=== PATIENT | female | born 1970 | race Caucasian/White ===

== ENCOUNTER 2018-04-21 08:09 | Emergency (ER) | payer MEDICAID ==
[2018-04-21 09:23] LABS: ADD MAN DIFF? NO
[2018-04-21 09:31] LABS: BASOPHILS % 0.5 % (0.0-2.0); EOSINOPHILS # 0.1 10^3/ul (0.0-0.5); EOSINOPHILS % 1.8 % (0.0-7.0); HEMOGLOBIN 12.1 g/dl (12.0-16.0); LYMPHOCYTES # 1.1 10^3/ul (0.8-2.9); LYMPHOCYTES % 29.1 % (15.0-51.0); MEAN CORPUSCULAR HEMOGLOBIN 28.8 pg (29.0-33.0); MEAN CORPUSCULAR HGB CONC 32.7 g/dl (32.0-37.0); MEAN CORPUSCULAR VOLUME 88.1 fl (82.0-101.0); MEAN PLATELET VOLUME 10.7 fl (7.4-10.4); MONOCYTE # 0.4 10^3/ul (0.3-0.9); MONOCYTES % 9.5 % (0.0-11.0); NEUTROPHIL # 2.3 10^3/ul (1.6-7.5); NEUTROPHILS % 58.8 % (39.0-77.0); PLATELET COUNT 213 10^3/UL (140-415); RED CELL DISTRIBUTION WIDTH 12.4 % (11.5-14.5)
[2018-04-21 09:31] LABS: WHITE BLOOD COUNT 3.9 10^3/ul (4.8-10.8)
[2018-04-21 12:52] LABS: FREE THYROXINE INDEX (Calc) 2.36 ug/ml (0.65-3.89); T3 UPTAKE 31.4 % (23.5-40.5); T4 (THYROXINE) 7.5 ug/dl (5.5-11.0)
[2018-04-21] MEDS: predniSONE 20 MG TAB PO (13:50)
[2018-04-21] MEDS: IBUPROFEN 600 MG TAB PO (13:50)
== END 2018-04-21 13:55 | disposition home or self-care (01) ==
LOC: FTE 08:09
DX: J02.9 Acute pharyngitis, unspecified (principal)
CPT/HCPCS: 84436; 84443; 84479; 85025; 99283